=== PATIENT | male | born 1995 | race Two or more races ===

== ENCOUNTER 2020-11-30 15:48 | Emergency (ER) | payer OTHER ==
[~2020-11-30] VITALS: Ht 182.9 cm; Wt 88.5 kg
== END 2020-11-30 17:18 | disposition home or self-care (01) ==
LOC: ER 15:48
DX: S40.011A Contusion of right shoulder, initial encounter (principal); W20.8XXA Other cause of strike by thrown, projected or falling object, initial encounter; Y93.89 Activity, other specified; Y92.69 Other specified industrial and construction area as the place of occurrence of the external cause; Y99.8 Other external cause status